=== PATIENT | male | born 1950 | race Caucasian/White ===

== ENCOUNTER → 2016-11-07 | Outpatient (CLI) | payer OTHER ==
[2014-03-11 10:04] VITALS: BP 105/68
[2016-11-07 10:07] LABS: CHOL/HDL RATIO 5.4 (0.0-5.0)
== END ==
LOC: LAB 09:20
PROVIDERS: ATTEND Internal Medicine Cardiovascular Disease
DX: E78.4 Other hyperlipidemia (principal)
CPT/HCPCS: 36415; 80061

== ENCOUNTER → 2017-03-21 | Outpatient (CLI) | payer OTHER ==
[2014-03-11 10:04] VITALS: BP 105/68
== END ==
LOC: LAB 09:35
PROVIDERS: ATTEND Internal Medicine Nephrology
DX: R97.20 Elevated prostate specific antigen [PSA] (principal)
CPT/HCPCS: 36415; 84153

== ENCOUNTER → 2017-05-17 | Outpatient (CLI) | payer OTHER ==
[2014-03-11 10:04] VITALS: BP 105/68
[2017-05-17 09:23] LABS: ALBUMIN 3.4 g/dL (3.4-5.0); BILIRUBIN,DIRECT 0.08 mg/dL (0-0.2); CHOL/HDL RATIO 4.5 (0.0-5.0); TOTAL PROTEIN 7.4 g/dL (6.4-8.2)
== END ==
LOC: LAB 08:44
PROVIDERS: ATTEND Internal Medicine Cardiovascular Disease
DX: E78.4 Other hyperlipidemia (principal)
CPT/HCPCS: 36415; 80061; 80076

== ENCOUNTER → 2017-06-14 | Outpatient (CLI) | payer OTHER ==
[2014-03-11 10:04] VITALS: BP 105/68
--- NOTE | 2017-06-14 15:36 | RAD ---
Examination: Right ankle, three views History: Pain, edema, denies injury Comparison reference: Right foot, 01/14/2014 Findings: No acute fracture identified. There is a multiloculated cystic area involving the distal fi bula. No pathologic fracture is seen. The ankle mortise is symmetric and congruent. Soft tissue swell ing is present around the ankle. 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 There is marke d vascular calcification. Impression: 1. Nonspecific osteopenia and soft tissue swelling. 2. Unusual loculated cystic lesion involving the distal fibula. This is of uncertain etiology; it cou ld represent a neoplasm. Follow-up MR imaging recommended. 3. 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 4. Advanced arteriosclerosis. Reported By:
== END | disposition home or self-care (01) ==
LOC: RAD 15:08
PROVIDERS: ATTEND Nurse Practitioner Family
DX: R60.0 Localized edema (principal); M24.674 Ankylosis, right foot; I70.291 Other atherosclerosis of native arteries of extremities, right leg; M85.871 Other specified disorders of bone density and structure, right ankle and foot; M25.871 Other specified joint disorders, right ankle and foot
CPT/HCPCS: 73610

== ENCOUNTER → 2017-11-16 | Outpatient (CLI) | payer OTHER ==
[2014-03-11 10:04] VITALS: BP 105/68
--- NOTE | 2017-11-16 08:56 | US ---
HISTORY: Chronic heart burn Study: Right upper quadrant abdominal ultrasound Comparison: None Technique: Multiple images of the right upper quadrant were obtained. Findings: The liver measures 11.4 x 7.6 x 8.9. Increased echogenicity throughout the liver suggests fatty infil tration. Correlate clinically as other causes of hepatic disease may produce a similar appearance. Th e right kidney measures 12.0 x 6.0 x 6.0 cm. No sonographic evidence of hydronephrosis is identified. Multiple stones are noted within the gallbladder. Otherwise the gallbladder appears to be full of sl udge although underlying mass cannot be excluded. Gallbladder wall thickness is within normal limits measuring 2.6 mm. The common bile duct is within normal limits in caliber measuring 5.4 mm. The pancr eas was not well visualized. IMPRESSION: 1. Sonographic findings of hepatic steatosis. 2. Cholelithiasis as noted above. Reported By:
== END ==
LOC: RAD 08:00
PROVIDERS: ATTEND Nurse Practitioner Family
DX: K90.49 Malabsorption due to intolerance, not elsewhere classified (principal); K80.80 Other cholelithiasis without obstruction
CPT/HCPCS: 76705